=== PATIENT | male | born 1940 | race Caucasian/White ===

== ENCOUNTER 2016-09-15 09:58 | Outpatient (CLI) | payer MEDICARE ==
[2016-09-15 10:37] LABS: Bilirubin Negative (Negative); Blood, Urine Negative (Negative); Clarity Clear (Clear); Glucose, Urine (Dipstick) 250 mg/dL (Negative); Leukocyte Negative (Negative); Nitrite Negative (Negative); Protein, Urine (Dipstick) Negative (Neg-Trace); Specific Gravity, Urine 1.015 (1.005-1.030); Urobilinogen 0.2 mg/dL (0.2-1.0); pH, Urine 5.5 (5.0-9.0)
[2016-09-15 10:41] LABS: Bacteria/HPF Rare-Few HPF (None Seen); RBC/HPF None Seen HPF (0-3); Squamous Epithelial 0-3 HPF (0-3); WBC/HPF 0-3 HPF (0-3)
[2016-09-15 10:43] LABS: ALT (SGPT) 34 U/L (0-55); AST (SGOT) 33 U/L (5-34); Albumin 4.2 g/dL (3.4-4.8); Alkaline Phosphatase 68 U/L (40-150); Anion Gap 24 mmol/L (10-20); BUN (Urea Nitrogen) 34 mg/dL (8.4-25.7); Bilirubin, Total 0.3 mg/dL (0.2-1.2); Calc. Creatinine Clearance 0 mL/min (70-130); Calcium 9.7 mg/dL (7.8-10.44); Carbon Dioxide 22 mmol/L (23-31); Cardiac Risk 4.5 (Less than 4.5); Chloride 99 mmol/L (98-107); Cholesterol 175 mg/dL (< 200 Desired); Estimated GFR-MDRD 31; Globulin 2.5 g/dL (2.4-3.5); Glucose 252 mg/dL (83-110); HDL Cholesterol 39 mg/dL (>60 Neg Risk); LDL Cholesterol, Calculated 83 mg/dL; Protein, Total 6.7 g/dL (5.8-8.1); Sodium 141 mmol/L (136-145); Triglycerides 265 mg/dL (Less than 150)
[2016-09-15 10:46] LABS: #Neutrophils 6.1 thou/uL (1.40-6.50); %Basophils 1.3 % (0.0-1.0); %Lymphocytes 24.4 % (21.0-51.0); %Monocytes 7.4 % (0.0-10.0); %Neutrophils 63.9 % (42.0-75.0); Mean Corpuscular HGB CONC 33.1 g/dL (32.0-36.0); Mean Corpuscular Hemoglobin 28.9 pg (27.0-31.0); Mean Corpuscular Volume 87.4 fL (80.0-94.0); Mean Platelet Volume 12.7 fL (7.4-10.4); Platelet Count 204 thou/uL (130-400); RBC Distribution Width 13.5 % (11.5-14.5); Red Blood Cell (RBC) Count 3.79 mill/uL (4.70-6.10); White Blood Cell (WBC) Count 9.6 thou/uL (4.8-10.8)
[2016-09-15 10:47] LABS: #Lymphocytes 0.1 thou/uL (1.20-3.40)
[2016-09-15 18:23] LABS: Creatinine, Urine 194.85 mg/dL (63-166); Microalbumin Urine Less than 1.0 mg/dL (0.5-50.0); Microalbumin/Creat Ratio 5.1 mg/g (Less than 30)
== END 2016-09-15 09:59 ==
LOC: MADLABBHPM 09:58
PROVIDERS: ATTEND Family Medicine
DX: E11.9 Type 2 diabetes mellitus without complications (principal); I25.10 Atherosclerotic heart disease of native coronary artery without angina pectoris; N40.0 Benign prostatic hyperplasia without lower urinary tract symptoms
CPT/HCPCS: 80053; 80061; 81001; 82043; 82570; 83036; 85025; G0103

== ENCOUNTER 2017-05-25 09:16 | Outpatient (CLI) | payer MEDICARE ==
[2017-05-25 10:18] LABS: Hemoglobin A1c 7.1 % (4.0-6.0)
[2017-05-25 10:29] LABS: ALT (SGPT) 15 U/L (8-55); AST (SGOT) 14 U/L (5-34); Albumin 3.7 g/dL (3.4-4.8); Alkaline Phosphatase 65 U/L (40-150); Anion Gap 18 mmol/L (10-20); BUN (Urea Nitrogen) 39 mg/dL (8.4-25.7); Bilirubin, Direct 0.1 mg/dL (0.1-0.3); Bilirubin, Total Less than 0.3 mg/dL (0.2-1.2); Calc. Creatinine Clearance 0 mL/min (70-130); Calcium 9.8 mg/dL (7.8-10.44); Carbon Dioxide 25 mmol/L (23-31); Cardiac Risk 6.3 (Less than 4.5); Chloride 100 mmol/L (98-107); Cholesterol 208 mg/dl (< 200 Desired); Estimated GFR-MDRD 29; Glucose 185 mg/dL (83-110); HDL Cholesterol 33 mg/dL (>60 Neg Risk); LDL Cholesterol, Calculated 110 mg/dL; Potassium 3.9 mmol/L (3.5-5.1); Protein, Total 6.6 g/dL (5.8-8.1); Sodium 139 mmol/L (136-145); Triglycerides 326 mg/dL (Less than 150)
[2017-05-25 13:19] LABS: #Basophils 0.1 thou/uL (0.0-0.2); #Eosinphils 0.2 thou/uL (0.0-0.7); #Lymphocytes 2.5 thou/uL (1.20-3.40); #Monocytes 0.6 thou/uL (0.11-0.59); #Neutrophils 4.7 thou/uL (1.40-6.50); %Basophils 1.3 % (0.0-1.0); %Eosinophils 2.9 % (0.0-10.0); %Lymphocytes 30.4 % (21.0-51.0); %Monocytes 7.4 % (0.0-10.0); %Neutrophils 57.9 % (42.0-75.0); Giant Platelets SLIGHT; Hemoglobin 8.2 g/dL (14.0-18.0); Hypochromia SLIGHT = 6-15 cells (100X) (0-5/hpf); Large Platelets SLIGHT; MDiff Complete? YES; Mean Corpuscular HGB CONC 30.9 g/dL (32.0-36.0); Mean Corpuscular Hemoglobin 24.7 pg (27.0-31.0); Mean Corpuscular Volume 79.9 fl (80.0-94.0); Mean Platelet Volume 12.4 fL (7.4-10.4); Platelet Count 211 thou/uL (130-400); Polychromasia SLIGHT = 2-3 cells (100X) (0-2/hpf); RBC Distribution Width 15.7 % (11.5-14.5); Red Blood Cell (RBC) Count 3.34 mill/uL (4.70-6.10); White Blood Cell (WBC) Count 8.1 thou/uL (4.8-10.8)
== END 2017-05-25 09:17 | disposition home or self-care (01) ==
LOC: MADLABBHPM 09:16
PROVIDERS: ATTEND Family Medicine
DX: E11.9 Type 2 diabetes mellitus without complications (principal); E78.5 Hyperlipidemia, unspecified; I50.9 Heart failure, unspecified
CPT/HCPCS: 36415; 80048; 80061; 80076; 83036; 85025

== ENCOUNTER 2017-06-16 14:59 | Outpatient (CLI) | payer MEDICARE ==
[2017-06-16 15:34] LABS: #Basophils 0.1 thou/uL (0.0-0.2); #Eosinphils 0.1 thou/uL (0.0-0.7); #Lymphocytes 2.4 thou/uL (1.20-3.40); #Monocytes 0.7 thou/uL (0.11-0.59); #Neutrophils 4.9 thou/uL (1.40-6.50); %Basophils 1.3 % (0.0-1.0); %Eosinophils 1.7 % (0.0-10.0); %Lymphocytes 29.4 % (21.0-51.0); %Monocytes 8.3 % (0.0-10.0); %Neutrophils 59.2 % (42.0-75.0); Anisocytosis MODERATE=16-30 cells (100X) (0-5/hpf); Hemoglobin 8.6 g/dL (14.0-18.0); Hypochromia SLIGHT = 6-15 cells (100X) (0-5/hpf); MDiff Complete? YES; Mean Corpuscular HGB CONC 30.8 g/dL (32.0-36.0); Mean Corpuscular Hemoglobin 24.2 pg (27.0-31.0); Mean Corpuscular Volume 78.6 fl (80.0-94.0); Mean Platelet Volume 9.5 fL (7.4-10.4); Microcytosis MODERATE=15-30 cells (100X) (0-5/hpf); PLT Morphology Comment Appears Adequate; Platelet Count 250 thou/uL (130-400); RBC Distribution Width 15.8 % (11.5-14.5); Red Blood Cell (RBC) Count 3.54 mill/uL (4.70-6.10); White Blood Cell (WBC) Count 8.3 thou/uL (4.8-10.8)
== END 2017-06-16 15:00 | disposition home or self-care (01) ==
LOC: MADLABBHPM 14:59
PROVIDERS: ATTEND Family Medicine
DX: N18.9 Chronic kidney disease, unspecified (principal)
CPT/HCPCS: 36415; 85025; 93798

== ENCOUNTER 2017-07-06 14:07 | Outpatient (CLI) | payer MEDICARE ==
[2017-07-06 14:35] LABS: #Basophils 0.1 thou/uL (0.0-0.2); #Eosinphils 0.2 thou/uL (0.0-0.7); #Lymphocytes 2.4 thou/uL (1.20-3.40); #Monocytes 0.7 thou/uL (0.11-0.59); #Neutrophils 5.4 thou/uL (1.40-6.50); %Basophils 1.3 % (0.0-1.0); %Lymphocytes 27.3 % (21.0-51.0); %Monocytes 7.7 % (0.0-10.0); %Neutrophils 61.7 % (42.0-75.0); Anisocytosis SLIGHT = 6-15 cells (100X) (0-5/hpf); Hypochromia SLIGHT = 6-15 cells (100X) (0-5/hpf); MDiff Complete? YES; Mean Corpuscular HGB CONC 29.7 g/dL (32.0-36.0); Mean Corpuscular Hemoglobin 22.6 pg (27.0-31.0); Mean Corpuscular Volume 75.9 fl (80.0-94.0); Mean Platelet Volume 10.8 fL (7.4-10.4); Microcytosis SLIGHT = 6-15 cells (100X) (0-5/hpf); Platelet Count 259 thou/uL (130-400); Polychromasia SLIGHT = 2-3 cells (100X) (0-2/hpf); RBC Distribution Width 16.1 % (11.5-14.5); Red Blood Cell (RBC) Count 3.55 mill/uL (4.70-6.10); White Blood Cell (WBC) Count 8.8 thou/uL (4.8-10.8)
== END 2017-07-06 14:08 | disposition home or self-care (01) ==
LOC: MADLABBHPM 14:07
PROVIDERS: ATTEND Family Medicine
DX: D64.9 Anemia, unspecified (principal)
CPT/HCPCS: 36415; 85025

== ENCOUNTER 2017-07-27 13:40 | Outpatient (CLI) | payer MEDICARE ==
[2017-07-27 13:54] LABS: #Basophils 0.1 thou/uL (0.0-0.2); #Eosinphils 0.1 thou/uL (0.0-0.7); #Monocytes 0.5 thou/uL (0.11-0.59); #Neutrophils 5.6 thou/uL (1.40-6.50); %Eosinophils 1.5 % (0.0-10.0); %Lymphocytes 23.2 % (21.0-51.0); %Neutrophils 68.3 % (42.0-75.0); Hemoglobin 7.7 g/dL (14.0-18.0); MDiff Complete? YES; Mean Corpuscular Hemoglobin 21.7 pg (27.0-31.0); Mean Corpuscular Volume 72.4 fl (80.0-94.0); Mean Platelet Volume 9.9 fL (7.4-10.4); Platelet Count 220 thou/uL (130-400); RBC Distribution Width 16.5 % (11.5-14.5); Red Blood Cell (RBC) Count 3.56 mill/uL (4.70-6.10); White Blood Cell (WBC) Count 8.2 thou/uL (4.8-10.8)
[2017-07-27 13:55] LABS: Anisocytosis SLIGHT = 6-15 cells (100X) (0-5/hpf); Microcytosis SLIGHT = 6-15 cells (100X) (0-5/hpf); Poikilocytosis SLIGHT = 6-15 cells (100X) (0-5/hpf); Polychromasia SLIGHT = 2-3 cells (100X) (0-2/hpf)
== END 2017-07-27 13:41 | disposition home or self-care (01) ==
LOC: MADLABBHPM 13:40
PROVIDERS: ATTEND Family Medicine
DX: D64.9 Anemia, unspecified (principal)
CPT/HCPCS: 36415; 85025

== ENCOUNTER 2017-07-27 16:22 | Observation (INO) | payer MEDICARE ==
[2017-07-27 17:22] VITALS: BMI 34.2
[2017-07-27] MEDS ORDERED: Docusate 100 MG CAP PO PRN (17:49)
[2017-07-27] MEDS ORDERED: Albuterol Sulfate 2.5 mg/3 ml Neb NEB PRN (17:49)
[2017-07-27 18:44] LABS: Hemoglobin A1c 8.7 % (4.0-6.0)
[2017-07-27 18:48] LABS: ALT (SGPT) 19 U/L (8-55); AST (SGOT) 21 U/L (5-34); Albumin 3.8 g/dL (3.4-4.8); Alkaline Phosphatase 77 U/L (40-150); Anion Gap 20 mmol/L (10-20); BUN (Urea Nitrogen) 39 mg/dL (8.4-25.7); Bilirubin, Total 0.3 mg/dL (0.2-1.2); Calc. Creatinine Clearance 48 mL/min (70-130); Calcium 9.4 mg/dL (7.8-10.44); Carbon Dioxide 25 mmol/L (23-31); Chloride 95 mmol/L (98-107); Estimated GFR-MDRD 30; Globulin 3.1 g/dL (2.4-3.5); Glucose 394 mg/dL (83-110); Potassium 3.3 mmol/L (3.5-5.1); Protein, Total 6.9 g/dL (5.8-8.1); Sodium 137 mmol/L (136-145)
[2017-07-27] MEDS ORDERED: Mometasone/Formoterol 60 PUFF AER INH SCH ×2 (19:00→20:15)
[2017-07-27] MEDS: Albuterol Sulfate 2.5 mg/3 ml Neb NEB SCH (20:09)
--- NOTE | 2017-07-27 21:44 | HP ---
Admitted to observation on 07/27/2017. CHIEF COMPLAINT: Weak, dizzy. PRESENT ILLNESS: The patient is a 76-year-old white male who has a history of coronary artery diseas e, for which he has undergone coronary artery bypass, hypertension, aortic stenosis, for which he und erwent a transarterial valvular replacement on 04/21/2017. Additionally, the patient has diabetes, t ype 2; chronic kidney disease, stage 4; and chronic anemia secondary to chronic renal disease; and po ssibly contributed by some chronic GI blood loss. The patient has had a workup for his anemia in the past. He underwent a colonoscopy and EGD in 03/17/2017. These studies were normal with exception t hat showed evidence of a hiatal hernia. There is no signs of bleeding. There was a question that he may have some source of some chronic gastrointestinal blood loss coming from the small intestines, a nd they had entertained the idea of a capsule camera endoscopy, but this has not yet been done. He h as required transfusions on several occasions. The last time he thinks was around the time that he h ad the valve replacement in 03/2017. Patient has been monitoring his blood count, and it has been us ually in January it was down to 7.3 and required transfusion. Patient said that today on the day of adm ission, he felt very weak. He had no strength, he could not get up and walk. He felt very lighthead ed when he was standing. His blood count today showed a hemoglobin and hematocrit of 7.7 and 25.8, M CV 72.4, WBC count 8.2, platelet count 220,000 with 68% segs, 23% lymphocytes. His last renal functi on was done on 05/25/2017 and showed urea nitrogen of 39, creatinine of 2.2, and a GFR of 29. The roxanne raya had presented to my office with complaints of increased weakness and was admitted to [facility] for transfusion. Patient said he did not know that he was not having any active bleeding, he was n ot presently having any bloody stools. He says his stools are always dark, he is on chronic iron the rapy. PAST MEDICAL HISTORY: Coronary artery disease, status post coronary artery bypass; carotid artery di sease, for which he has undergone a right carotid endarterectomy; severe aortic stenosis, for which h e underwent a transarterial aortic valve replacement on 04/21/2017. The patient has hypertension, GE RD, hiatal hernia, diabetes type 2, chronic obstructive pulmonary disease under the care of Dr. Aniket nielson in [place]. Patient has had abdominal hernia repairs colonoscopy in 10/11 and in 02/2017. He s aid was negative. EGD in 02/2017 showed just hiatal hernia. 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 The patient has an enlarged prostate, hyperlipidemia. The patien t has a history of renal cyst. PRESENT MEDICINES: Oxygen at 2-1/2 liters by nasal cannula as needed, albuterol is 0.083% by nebuliz er 3 mL 4 times a day in every 4 hours as needed, Advair Diskus 500/50 one inhalation twice today, me toprolol tartrate 25 mg half tablet b.i.d., omeprazole 20 mg twice today, furosemide 40 mg daily, asp irin 81 mg daily, metformin 1000 mg half tablet b.i.d., glipizide 5 mg 1 daily, magnesium 250 mg twic e today, ferrous sulfate 325 mg b.i.d., metolazone 2.5 mg daily, tamsulosin 0.4 mg at bedtime, vitami n E 400 units daily, potassium gluconate 595 mg b.i.d., docusate sodium 100 mg daily as needed, multi vitamin 1 daily. ALLERGIES: GABAPENTIN makes him crazy in the head. REVIEW OF SYSTEMS: Patient does have think, he has had any recent weight gain or loss. He has had n o recent fever. Head and Neck: He said today, he has been very dizzy, but he thinks it is from low blood. Dizziness is not there when he is sitting or lying. Pulmonary: No complaints. Cardiovascul ar: The patient said his heart has been doing good. He has had no shortness of breath. He is prese ntly undergoing cardiac rehabilitation and physical therapy 4 days a week at [facility]. Patient's enterprise engineer is Dr. Ha in [place]. Gastrointestinal: The patient said he has had no nausea or vomiting and his stomach is not hurting. The patient said his stools tend to be laisha k occasionally, has a small amount of bright red blood, but none recent. : No complaints. Muscle s, Neuro, Psychiatric: No complaints. Endocrine: The patient said his blood sugars have been doing good lately for him. ADLs: Patient has usually can ambulate in his house without an assistive device. When he is out fro m the house, he will use wheelchair if he is going to a long distance or a walker. Patient able to d ress himself and bathe, may have his assist if needed. Patient can feed himself. The patient i s continent of stools and urine. HABITS: Alcohol none. Tobacco none. SOCIAL HISTORY: The patient is , lives with his . CODE STATUS: Not known. PHYSICAL EXAMINATION: GENERAL: Shows a 76-year-old white male who is sitting in a wheelchair. He is alert, talkative, and appears in no acute distress. He is weak and does feel appeared very pale. His weight is 255. Hei ght 71 inches, BMI 35.5. VITAL SIGNS: Temperature 98, blood pressure 132/70, respirations 20, heart rate 80, O2 saturation 97 % on room air. HEAD: Normocephalic and atraumatic. EARS: TMs are clear. EYES: Pupils are equal, round, and reactive. Sclerae nonicteric. NOSE: Normal. MOUTH AND THROAT: Normal. NECK: Carotids are equal and strong, no bruits. Thyroid not enlarged. LUNGS: Clear. HEART: Regular rate. No murmurs. ABDOMEN: Obese. No organomegaly, no areas of tenderness. EXTREMITIES: Have trace edema. SKIN: The patient has an occasional bruise on his arms and legs. He appears very pale. NEUROLOGIC: Patient alert and oriented x3 with generalized weakness, but no focal weakness. IMPRESSION: 1. Acute anemia. A. Acute exacerbation, symptomatic. B. Etiology, chronic renal disease and possibly some chronic gastrointestinal blood loss. C. Hemoglobin today is 7.7 with an MCV of 72. 2. Coronary artery disease. A. Status post coronary artery bypass. 3. Severe aortic stenosis, status post transcatheter aortic valve replacement on 04/21/2017. 4. Chronic kidney disease, stage 4. GFR of 29 as of on 05/25/2017. 5. Chronic obstructive pulmonary disease. 6. Venous insufficiency of the lower extremities. 7. Diabetes, type 2. A. Good control. Hemoglobin A1c 7.1 on 05/25/2017. 8. Hypertension. 9. Hyperlipidemia. 10. Benign prostatic hypertrophy. A. Outlet symptoms controlled with tamsulosin. 11. Gastroesophageal reflux disease. 12. Carotid artery disease. A. Status post right carotid endarterectomy in 2003. 13. 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 Last scan of carotids on 2015 still showed a total occlusion of left internal carotid artery and no stenosis on the right. 14. Generalized weakness. PLAN: The patient has been admitted to observation. He will be typed and crossed for 2 units and gi sara 1 unit of blood and then a post-transfusion H&H performed and then we will decide if additional b lood will need to be given. We will check iron studies and stools for occult blood and continue his routine medication.
[2017-07-28 02:13] LABS: Hemoglobin 8.1 g/dL (14.0-18.0)
[2017-07-28] MEDS: Albuterol Sulfate 2.5 mg/3 ml Neb NEB SCH (06:02)
[2017-07-28] MEDS ORDERED: Mometasone/Formoterol 60 PUFF AER INH SCH (07:00)
[2017-07-28 07:17] LABS: Hemoglobin 9.6 g/dL (14.0-18.0)
[2017-07-28] MEDS ORDERED: glipiZIDE 5 MG TAB PO SCH (07:30)
[2017-07-28] MEDS ORDERED: metFORMIN 500 MG TAB PO SCH (08:00)
[2017-07-28] MEDS ORDERED: Ferrous Sulfate 325 MG TAB PO SCH (08:00)
[2017-07-28 08:22] VITALS: BP 119/57; TEMP 98.7
[2017-07-28] MEDS ORDERED: Metolazone 5 MG TAB PO SCH (09:00)
[2017-07-28] MEDS ORDERED: Tamsulosin HCl 0.4 MG CAP PO SCH (09:00)
[2017-07-28] MEDS ORDERED: Furosemide 40 MG TAB PO SCH (09:00)
[2017-07-28] MEDS ORDERED: Aspirin 81 mg Enteric Coated Tablet PO SCH (09:00)
[2017-07-28] MEDS ORDERED: Multivit, Therapeutic 1 TAB PO SCH (09:00)
--- NOTE | 2017-07-28 14:59 | DIS ---
FINAL DIAGNOSES: 1. Chronic anemia. A. Acute exacerbation, symptomatic. B. Etiology, chronic renal disease and possibly some chronic gastrointestinal blood loss. C. Hemoglobin today is 7.7 with an MCV of 72. D. Hemoglobin up to 9.7 after transfusion of 2 units of packed RBCs with resolution of his symptoms of dizziness and weakness. 2. Coronary artery disease. A. Status post coronary artery bypass. 3. Severe aortic stenosis, status post transcatheter aortic valve replacement on 04/21/2017. 4. Chronic kidney disease, stage 4. GFR of 29 as of on 05/25/2017. A. GFR 30 as of 07/27/2017. 5. Chronic obstructive pulmonary disease. 6. Venous insufficiency of the lower extremities. 7. Diabetes, type 2. A. Control has declined with a hemoglobin A1c increasing from 7.1 on 05/25/2017 to 8.7 as of 017. 8. Hypertension. 9. Hyperlipidemia. 10. Benign prostatic hypertrophy. A. Outlet symptoms controlled with tamsulosin. 11. Gastroesophageal reflux disease. 12. Carotid artery disease. A. Status post right carotid endarterectomy in 2003. 13. 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 Last scan of carotids on 2015 still showed a total occlusion of left internal carotid artery and no stenosis on the right. 14. Generalized weakness. A. Improved. SUMMARY: The patient is a 76-year-old white male who has coronary artery disease for which he has un dergone coronary artery bypass, severe aortic stenosis for which he has undergone a TAVR in 03/2017. Additionally, he has carotid artery disease with total occlusion of the left internal carotid artery and a carotid endarterectomy on the right in 2003. Additionally, has diabetes type 2 with hemoglobi n A1c of 7.1 on 05/25/2017. He has a history of chronic kidney disease with a GFR of 29 on 7. Additionally, he has a history of chronic anemia secondary to his severe chronic kidney disease a nd possibly some chronic GI blood loss. The patient underwent GI workup in 02/2017 including colonos copy and EGD which only showed a hiatal hernia, no source of bleeding was found. The patient was tho ught that he may have some source of chronic bleeding from the small intestines, but has never underg one a capsule/camera endoscopy. The patient presented to my office on the day of admission saying th at he got up today and was much weaker than usual. He has felt lightheaded and dizzy and could hardl y walk due to the severe fatigue and dizziness. He said this is usually the way he feels when his bl ood count has dropped. His hemoglobins have been running 8s, hemoglobin done today was 7.7 with an M CV of 7.2. He denied any symptoms of any vomiting or diarrhea. He has not had any recent blood in h is stools. He says he has some chronic dark stools, but he is on iron. The patient was admitted to observation and was transfused 1 unit of packed RBCs, 1 hour post-transfu sonido hemoglobin was 8.1. The patient was given a second unit of packed RBCs bringing his hemoglobin up to 9.6. On the exam on the morning of 07/28/2017, the patient looked much better. His color was much improve d. He did not have the paleness he did yesterday. His lungs were clear. He said he felt good. He was not having the sense of fatigue and weakness or dizziness. In review of his lab work, his hemogl obin A1c had gone up to 8.7. His FBS was running in the 300s on the night of admission and on the mo rning of 07/28/2017 was 394. His BUN was 39, creatinine 2.13 and GFR 30. Sodium 137, potassium 3.3. The patient's condition was much improved in that he no longer had the symptoms of the severe anemi a. It is felt that he could be managed now as an outpatient. The etiology of the anemia is probably from his chronic renal disease and it may be contributed to by some chronic GI blood loss. The patient sees a gusset folder and will need to see t he gusset folder in followup and discuss with him treatment of the anemia. I have ordered stools for occult blood, these have not been gathered as yet. On his followup visit we will do a follow up bloo d count and also iron studies. The patient's diabetes is poorly controlled. We will stop the metfor min due to his severe renal disease, increase the Glucotrol/glipizide from 5 mg daily to 5 mg b.i.d. Encouraged him to follow his diabetic diet and to monitor his glucose. If glucoses are not improvin g, he may need to have insulin added. DIET: 2000 calorie diabetic diet. No added salt. ACTIVITIES: Ambulate with the use of a walker. Continue his 4 days of strengthening exercises and g ait training and physical therapy. MEDICATIONS: Albuterol 0.083% 2.5 mg/3 mL 4 times a day and every 4 hours as needed, aspirin 81 mg d aily, docusate sodium 100 mg daily as needed, ferrous sulfate 325 mg b.i.d., furosemide 40 mg daily, glipizide 5 mg increased to 1 b.i.d., magnesium 250 mg daily, metformin should be stopped, metolazone 2.5 mg daily, metoprolol succinate 12.5 mg b.i.d., Dulera 200/5 two puffs b.i.d., multivitamin vic y, omeprazole 20 mg b.i.d., tamsulosin 0.4 mg at bedtime, potassium gluconate 595 mg daily. FOLLOW UP: The patient should follow up with his custody officer on his routine schedule. The patient should also see his gusset folder. The patient should be seen in my office in 2 weeks and bring his h ome glucose reading. Lab prior to that visit will be a CBC, basic metabolic panel, serum iron, TIBC, serum ferritin and stools for occult blood. CODE STATUS: Full code.
== END 2017-07-28 09:54 | disposition home or self-care (01) ==
LOC: MADMS 16:22
PROVIDERS: ADMIT Family Medicine; ATTEND Family Medicine
DX: E11.22 Type 2 diabetes mellitus with diabetic chronic kidney disease (principal); I12.9 Hypertensive chronic kidney disease with stage 1 through stage 4 chronic kidney disease, or unspecified chronic kidney disease; N18.4 Chronic kidney disease, stage 4 (severe); D63.1 Anemia in chronic kidney disease; R53.1 Weakness; R42 Dizziness and giddiness; K21.9 Gastro-esophageal reflux disease without esophagitis; J44.9 Chronic obstructive pulmonary disease, unspecified; I25.10 Atherosclerotic heart disease of native coronary artery without angina pectoris; E78.5 Hyperlipidemia, unspecified; N40.0 Benign prostatic hyperplasia without lower urinary tract symptoms; Z95.1 Presence of aortocoronary bypass graft; Z88.8 Allergy status to other drugs, medicaments and biological substances; Z79.84 Long term (current) use of oral hypoglycemic drugs; Z79.899 Other long term (current) drug therapy; Z95.2 Presence of prosthetic heart valve; Z98.890 Other specified postprocedural states; Z85.828 Personal history of other malignant neoplasm of skin
CPT/HCPCS: 36415; 36416; 36430; 80053; 83036; 85014; 85018; 85025; 86850; 86900; 86901; 86922; 94640; A4216; G0378; G0379; P9016

== ENCOUNTER 2017-09-27 14:02 | Outpatient (CLI) | payer MEDICARE ==
[2017-09-27 15:25] LABS: Anion Gap 21 mmol/L (10-20); BUN (Urea Nitrogen) 39 mg/dL (8.4-25.7); Calc. Creatinine Clearance 0 mL/min (70-130); Calcium 9.8 mg/dL (7.8-10.44); Carbon Dioxide 28 mmol/L (23-31); Chloride 90 mmol/L (98-107); Estimated GFR-MDRD 31; Glucose 387 mg/dL (83-110); Sodium 136 mmol/L (136-145); Uric Acid 11.2 mg/dL (3.5-7.2)
[2017-09-27 16:53] LABS: Potassium 2.7 mmol/L (3.5-5.1)
[2017-09-27 17:05] LABS: #Basophils 0.1 thou/uL (0.0-0.2); #Eosinphils 0.1 thou/uL (0.0-0.7); #Lymphocytes 1.9 thou/uL (1.20-3.40); #Monocytes 0.8 thou/uL (0.11-0.59); #Neutrophils 8.9 thou/uL (1.40-6.50); %Basophils 0.9 % (0.0-1.0); %Eosinophils 1.1 % (0.0-10.0); %Lymphocytes 15.9 % (21.0-51.0); %Monocytes 6.8 % (0.0-10.0); %Neutrophils 75.2 % (42.0-75.0); Hemoglobin 11.8 g/dL (14.0-18.0); Mean Corpuscular HGB CONC 31.5 g/dL (32.0-36.0); Mean Corpuscular Hemoglobin 25.3 pg (27.0-31.0); Mean Corpuscular Volume 80.5 fl (80.0-94.0); PLT Morphology Comment Appears Adequate; Platelet Count 222 thou/uL (130-400); RBC Distribution Width 17.2 % (11.5-14.5); Red Blood Cell (RBC) Count 4.64 mill/uL (4.70-6.10); White Blood Cell (WBC) Count 11.9 thou/uL (4.8-10.8)
[2017-09-27 20:34] LABS: CRP (Inflammatory) 15.46 mg/dL (= or < 0.5)
== END 2017-09-27 14:03 | disposition home or self-care (01) ==
LOC: MADLABBHPM 14:02
PROVIDERS: ATTEND Family Medicine
DX: N18.9 Chronic kidney disease, unspecified (principal); D63.1 Anemia in chronic kidney disease; M65.9 Synovitis and tenosynovitis, unspecified
CPT/HCPCS: 36415; 80048; 84550; 85025; 85652; 86140

== ENCOUNTER 2017-10-03 13:54 | Outpatient (CLI) | payer MEDICARE ==
[2017-10-03 14:32] LABS: #Basophils 0.1 thou/uL (0.0-0.2); #Eosinphils 0.2 thou/uL (0.0-0.7); #Lymphocytes 1.7 thou/uL (1.20-3.40); #Monocytes 0.5 thou/uL (0.11-0.59); #Neutrophils 5.3 thou/uL (1.40-6.50); %Basophils 1.4 % (0.0-1.0); %Eosinophils 2.4 % (0.0-10.0); %Lymphocytes 20.1 % (21.0-51.0); %Monocytes 7.3 % (0.0-10.0); %Neutrophils 68.7 % (42.0-75.0); Mean Corpuscular HGB CONC 31.1 g/dL (32.0-36.0); Mean Corpuscular Hemoglobin 24.9 pg (27.0-31.0); Mean Corpuscular Volume 80.1 fl (80.0-94.0); Mean Platelet Volume 11.2 fL (7.4-10.4); Platelet Count 294 thou/uL (130-400); RBC Distribution Width 15.9 % (11.5-14.5); Red Blood Cell (RBC) Count 4.82 mill/uL (4.70-6.10); White Blood Cell (WBC) Count 7.9 thou/uL (4.8-10.8)
[2017-10-03 14:48] LABS: Anion Gap 20 mmol/L (10-20); BUN (Urea Nitrogen) 41 mg/dL (8.4-25.7); Calc. Creatinine Clearance 0 mL/min (70-130); Calcium 10.1 mg/dL (7.8-10.44); Carbon Dioxide 29 mmol/L (23-31); Chloride 95 mmol/L (98-107); Estimated GFR-MDRD 30; Glucose 296 mg/dL (83-110); Sodium 141 mmol/L (136-145); Uric Acid 10.8 mg/dL (3.5-7.2)
[2017-10-03 14:55] LABS: Anisocytosis SLIGHT = 6-15 cells (100X) (0-5/hpf); PLT Morphology Comment Appears Adequate
--- NOTE | 2017-10-03 15:49 | ULT ---
BILATERAL RENAL ULTRASOUND COMPLETE: HISTORY: A 77-year-old male with a history of chronic kidney disease and COPD. FINDINGS: The right kidney measures 10.7 x 3.9 x 5.1 cm. The left kidney measures 10.9 x 4.8 x 6.3 cm. Two ri ght renal cysts were noted up to approximately 2.4 cm in size. No renal hydronephrosis. No perineph alexa process. Bladder is small. No significant postvoid residual. IMPRESSION: No renal hydronephrosis. Two right renal cysts. No significant postvoid residual with a residual of approximately 18 cc. POS: [facility]
[2017-10-03 20:15] LABS: CRP (Inflammatory) 6.48 mg/dL (= or < 0.5)
== END 2017-10-03 13:55 | disposition home or self-care (01) ==
LOC: MADRAD 13:54
PROVIDERS: ATTEND Family Medicine
DX: N18.3 Chronic kidney disease, stage 3 (moderate) (principal); D63.1 Anemia in chronic kidney disease; M65.9 Synovitis and tenosynovitis, unspecified
CPT/HCPCS: 36415; 76770; 80048; 84550; 85025; 85652; 86140

== ENCOUNTER 2018-01-03 09:47 | Outpatient (CLI) | payer MEDICARE | END 2018-01-03 09:48 | disposition home or self-care (01) | LOC: MADLABBHPM 09:47 | PROVIDERS: ATTEND Family Medicine | DX: E11.9 Type 2 diabetes mellitus without complications (principal); D64.9 Anemia, unspecified; M10.9 Gout, unspecified ==

== ENCOUNTER 2018-09-06 08:28 | Outpatient (CLI) | payer MEDICARE | END 2018-09-06 08:29 | LOC: MADLABBHPM 08:28 | PROVIDERS: ATTEND Family Medicine | DX: N39.0 Urinary tract infection, site not specified (principal); D64.9 Anemia, unspecified | CPT/HCPCS: 87086 ==

== ENCOUNTER 2018-11-01 14:26 | Outpatient (CLI) | payer MEDICARE ==
--- NOTE | 2018-11-01 15:07 | RAD ---
TWO VIEWS CHEST: Comparison: 06-04-14 History: CHF. FINDINGS: Two views of the chest shows normal sized cardiomediastinal silhouette. The patient is status post st ernotomy. There is no evidence of consolidation, mass or pleural effusion. Degenerative changes are s een in the spine. IMPRESSION: No evidence of acute cardiopulmonary disease. POS: [facility]
[2018-11-01 15:30] LABS: Bilirubin Negative (Negative); Blood, Urine Trace (Negative); Clarity Clear (Clear); Glucose, Urine (Dipstick) Negative (Negative); Leukocyte Trace (Negative); Nitrite Negative (Negative); Protein, Urine (Dipstick) 30 mg/dL (Neg-Trace); Urobilinogen 0.2 mg/dL (0.2-1.0)
[2018-11-01 15:43] LABS: Anion Gap 16 mmol/L (10-20); BUN (Urea Nitrogen) 56 mg/dL (8.4-25.7); Calc. Creatinine Clearance 0 mL/min (70-130); Carbon Dioxide 25 mmol/L (23-31); Chloride 101 mmol/L (98-107); Estimated GFR-MDRD 23; Glucose 171 mg/dL (83-110); Potassium 4.2 mmol/L (3.5-5.1); Sodium 138 mmol/L (136-145)
[2018-11-01 15:46] LABS: Bacteria/HPF Rare-Few HPF (None Seen); RBC/HPF 0-3 HPF (0-3); Squamous Epithelial 0-3 HPF (0-3)
[2018-11-01 15:50] LABS: #Basophils 0.1 thou/uL (0.0-0.2); #Eosinphils 0.2 thou/uL (0.0-0.7); #Lymphocytes 1.9 thou/uL (1.20-3.40); #Monocytes 0.8 thou/uL (0.11-0.59); %Basophils 0.5 % (0.0-1.0); %Eosinophils 1.1 % (0.0-10.0); %Lymphocytes 10.5 % (21.0-51.0); %Monocytes 4.3 % (0.0-10.0); %Neutrophils 83.5 % (42.0-75.0); Giant Platelets SLIGHT; Hemoglobin 11.9 g/dL (14.0-18.0); Large Platelets MODERATE; MDiff Complete? YES; Mean Corpuscular HGB CONC 33.3 g/dL (32.0-36.0); Mean Corpuscular Hemoglobin 28.5 pg (27.0-31.0); Mean Corpuscular Volume 85.4 fL (78.0-98.0); Mean Platelet Volume 14.7 fL (7.4-10.4); Platelet Count 152 thou/uL (130-400); RBC Distribution Width 13.4 % (11.5-14.5)
== END 2018-11-01 14:27 | disposition home or self-care (01) ==
LOC: MADLABBHPM 14:26
PROVIDERS: ATTEND Family Medicine
DX: R53.1 Weakness (principal)
CPT/HCPCS: 36415; 71046; 80048; 81001; 83880; 85025; 87086